=== PATIENT | female | born 1955 | race American Indian/Alaskan Native ===

== ENCOUNTER 2019-05-24 09:59 | Emergency (ER) | payer OTHER ==
[2019-05-24 10:18] VITALS: BP 125/68
--- NOTE | 2019-05-24 11:59 | XRay Report ---
CHEST 2 VIEWS INDICATION / CLINICAL INFORMATION: prod cough with pain. COMPARISON: None available. FINDINGS: SUPPORT DEVICES: None. HEART / MEDIASTINUM: No significant abnormality. LUNGS / PLEURA: No significant pulmonary or pleural abnormality. .No pneumothorax. ADDITIONAL FINDINGS: No significant additional findings. IMPRESSION: 1. No acute findings. Signer Name: Connor Elaine MD Signed: 05/24/2019 11:55 AM Workstation Name: [id number]
--- NOTE | 2019-05-24 12:07 | Emergency Department Report ---
Minor Respiratory - HPI Chief Complaint: Chest Pain Stated Complaint: CHEST COLD/CHEST PAIN Time Seen by Provider: 05/24/19 11:03 Minor Respiratory: Yes Cough, Yes Chest Pain (only with coughing), No Rhinorrhea, No Sore Throat, No Able to Tolerate Fluids, No Ear Pain, No Sick Contacts, No Hemoptysis, No Shortness of Breath, No Fever Other History: This is a 63-year-old female who presents the ED complaining of intermittent coughing for the past week. Patient states she is taking [id number] medication with no relief. Patient denies fever/chills/nausea vomiting. Patient states it feels like there is mucus stuck in her throat but she cannot cough it up. She denies body aches, shortness of breath, chest pain ED Review of Systems ROS: Stated complaint: CHEST COLD/CHEST PAIN Other details as noted in HPI Comment: All other systems reviewed and negative ED Past Medical Hx - Past Medical History Hx Hypertension: Yes Hx Diabetes: Yes Additional medical history: HIGH CHOLESTROL - Surgical History Additional Surgical History: HAND - Social History Smoking Status: Never Smoker Substance Use Type: None - Medications Home Medications: Home Medications Medication Instructions Recorded Confirmed Last Taken Type Acetamin/Codeine 120-12Mg/5 ml 5 ml PO TID PRN #60 ml 05/24/19 Unknown Rx [Tylenol/Codeine] Benzonatate [Tessalon Perles] 100 mg PO Q8HR #30 capsule 05/24/19 Unknown Rx guaiFENesin ER [Mucinex ER] 600 mg PO Q12H #20 tablet.er 05/24/19 Unknown Rx Minor Respiratory Exam - Exam General: Vital signs noted. No distress. Alert and acting appropriately. HEENT: Yes Moist Mucous Membranes, No Pharyngeal Erythema, No Pharyngeal Exudates, No Rhinorrhea, No Conjuctival Injection, No Frontal Tenderness, No Maxillary Tenderness Ear: Neither TM Bulge, Neither TM Erythema, Neither EAC Pain, Neither EAC Discharge Neck: Yes Supple, No Adenopathy Lungs: Yes Good Air Exchange, No Wheezes, No Ronchi, No Stridor, No Cough, No Labored Respirations, No Retractions, No Use of Accessory Muscles, No Other Abnormal Lung Sounds Heart: Yes Regular, No Murmur Abdomen: Yes Normal Bowel Sounds, No Tenderness, No Peritoneal Signs Skin: No Rash, No Edema Neurologic: Alert and oriented, no deficits. Musculoskeletal: Unremarkable. ED Course Vital Signs 05/24/19 10:17 Temperature 98.8 F Pulse Rate 68 Respiratory 16 Rate Blood Pressure 125/68 O2 Sat by Pulse 98 Oximetry ED Medical Decision Making - EKG Data EKG shows normal: sinus rhythm - EKG Data Interpretation: normal EKG - Radiology Data Radiology results: report reviewed, image reviewed CHEST 2 VIEWS INDICATION / CLINICAL INFORMATION: prod cough with pain. COMPARISON: None available. FINDINGS: SUPPORT DEVICES: None. HEART / MEDIASTINUM: No significant abnormality. LUNGS / PLEURA: No significant pulmonary or pleural abnormality. .No pneumothorax. ADDITIONAL FINDINGS: No significant additional findings. IMPRESSION: 1. No acute findings. Signer Name: Connor Elaine MD Signed: 05/24/2019 11:55 AM Workstation Name: [id number] Transcribed By: MATTHEW Dictated By: Connor Elaine MD Electronically Authenticated By: Connor Elaine MD Signed Date/Time: 05/24/19 1155 - Medical Decision Making 63-year-old female who presented with bronchitis no fever during the ED stay. Chest x-ray shows no acute findings. See report above Discussed increase fluids and diet intake. Discussed rest much needed. Discussed daily vitamin C for immune booster. Discussed follow-up with primary care physician in 3-5 days. Patient verbally states she understands and will comply the following instructions and follow-up Vital signs stable. Patient is in no acute distress Critical care attestation.: If time is entered above; I have spent that time in minutes in the direct care of this critically ill patient, excluding procedure time. ED Disposition Clinical Impression: Bronchitis, Upper respiratory infection Disposition: DC-01 TO HOME OR SELFCARE Is pt being admited?: No Does the pt Need Aspirin: No Condition: Stable Instructions: Chronic Bronchitis (ED) Additional Instructions: Make sure to follow up with the primary care physician as discussed. Take all your medications as you've been prescribed. If you have any worsening symptoms or develop new symptoms please return to ED immediately. Prescriptions: guaiFENesin ER [Mucinex ER] 600 mg PO Q12H #20 tablet.er Benzonatate [Tessalon Perles] 100 mg PO Q8HR #30 capsule Acetamin/Codeine 120-12Mg/5 ml [Tylenol/Codeine] 5 ml PO TID PRN #60 ml PRN Reason: Pain Referrals: PRIMARY CARE, [Referring] - 3-5 Days [facility] [Outside] - 3-5 Days [facility] [Outside] - 3-5 Days Forms: Accompanied Note, Work/School Release Form(ED) Time of Disposition: 12:16
== END 2019-05-24 12:32 | disposition home or self-care (01) ==
LOC: ED 09:59
DX: J40 Bronchitis, not specified as acute or chronic (principal); J06.9 Acute upper respiratory infection, unspecified; I10 Essential (primary) hypertension; E11.9 Type 2 diabetes mellitus without complications; Z79.899 Other long term (current) drug therapy
CPT/HCPCS: 71046; 93005; 93010